=== PATIENT | male | born 1975 | race Caucasian/White ===

== ENCOUNTER 2018-03-28 10:09 | Emergency (ER) | payer MEDICAID, MEDICARE ==
[2018-03-28] MEDS ORDERED: Naproxen 500 MG TAB ONE (10:36)
[2018-03-28] MEDS ORDERED: diphenhydrAMINE 50 MG/ML VIAL ONE (10:36)
[2018-03-28] MEDS ORDERED: HYDROcodone/Acetaminophen 10/325 mg Tablet ONE (10:36)
[2018-03-28] MEDS ORDERED: Lorazepam 2 MG/ML VIAL ONE (11:14)
--- NOTE | 2018-03-28 11:28 | RAD ---
PA CHEST WITH TWO VIEWS LEFT RIBS: Date: 03-28-18 Provided Clinical History: Chest pain status post injury. Comparison: 08-10-14 FINDINGS: Cardiac and mediastinal silhouette is within normal limits. Lungs appear clear. There is no pleural f luid or pneumothorax apparent. Fractures of the lateral 4th, 5th, and 6th ribs are demonstrated with minimal displacement of the 6th rib fracture. Nondisplaced anterior 8th rib fracture is also noted. IMPRESSION: Left sided rib fractures without evidence for pleural fluid or pneumothorax. POS: [facility]
== END 2018-03-28 11:35 | disposition home or self-care (01) ==
LOC: MADERS 10:09
DX: S22.42XA Multiple fractures of ribs, left side, initial encounter for closed fracture (principal); F41.9 Anxiety disorder, unspecified; K21.9 Gastro-esophageal reflux disease without esophagitis; F31.9 Bipolar disorder, unspecified; F20.9 Schizophrenia, unspecified; F17.290 Nicotine dependence, other tobacco product, uncomplicated; W10.9XXA Fall (on) (from) unspecified stairs and steps, initial encounter; Y93.02 Activity, running
CPT/HCPCS: 96374; 96375; J1200; J2060

== ENCOUNTER 2018-03-30 09:22 | Emergency (ER) | payer MEDICARE ==
[~2018-03-30 09:22] MED LIST: Sodium Chloride 0.9% 1,000 ML BAG ONE
[2018-03-30 09:47] LABS: #Basophils 0.1 thou/uL (0.0-0.2); #Lymphocytes 1.9 thou/uL (1.20-3.40); #Neutrophils 9.9 thou/uL (1.40-6.50); %Basophils 0.7 % (0.0-1.0); %Lymphocytes 13.8 % (21.0-51.0); %Monocytes 14.1 % (0.0-10.0); %Neutrophils 71.4 % (42.0-75.0); Mean Corpuscular HGB CONC 35.1 g/dL (32.0-36.0); Mean Corpuscular Hemoglobin 33.7 pg (27.0-31.0); Mean Platelet Volume 7.2 fL (7.4-10.4); Platelet Count 215 thou/uL (130-400); RBC Distribution Width 11.8 % (11.5-14.5); Red Blood Cell (RBC) Count 4.44 mill/uL (4.70-6.10); White Blood Cell (WBC) Count 13.8 thou/uL (4.8-10.8)
[2018-03-30] MEDS ORDERED: Bacitracin Zinc 1 Packet ONE (09:52)
[2018-03-30] MEDS ORDERED: Ibuprofen 100 MG/5 ML UDCUP ONE (09:52)
[2018-03-30] MEDS ORDERED: Thiamine HCl 200 MG/2 ML VIAL ONE (09:52)
[2018-03-30] MEDS ORDERED: Ziprasidone 20 MG VIAL ONE (09:52)
[2018-03-30] MEDS ORDERED: Octreotide Acetate 100 MCG/ML VIAL ONE (09:55)
[2018-03-30] MEDS ORDERED: Sterile Water 10 ML ONE (09:55)
[2018-03-30 10:00] LABS: Acetaminophen Less than 6.0 mcg/mL (10.0-30.0); Alcohol Less than 10 mg/dL (Less than 10); Anion Gap 27 mmol/L (10-20); BUN (Urea Nitrogen) 41 mg/dL (8.9-20.6); Calc. Creatinine Clearance 0 mL/min (70-130); Calcium 9.1 mg/dL (7.8-10.44); Carbon Dioxide 14 mmol/L (22-29); Chloride 99 mmol/L (98-107); Estimated GFR-MDRD 12; Glucose 93 mg/dL (70-105); Potassium 5.2 mmol/L (3.5-5.1); Salicylate Less than 8.0 mg/dL (15.0-30.0); Sodium 135 mmol/L (136-145)
[2018-03-30 12:42] LABS: Bilirubin Small (Negative); Blood, Urine Large (Negative); Glucose, Urine (Dipstick) Negative (Negative); Leukocyte Negative (Negative); Nitrite Negative (Negative); Protein, Urine (Dipstick) 100 mg/dL (Neg-Trace); Specific Gravity, Urine 1.025 (1.005-1.030); Urobilinogen 0.2 mg/dL (0.2-1.0); pH, Urine 5.5 (5.0-9.0)
[2018-03-30 12:48] LABS: Clarity Cloudy (Clear)
[2018-03-30 12:49] LABS: Amphetamine Detected (NotDetected); Barbiturates Screen Not Detected (NotDetected); Benzodiazepine Screen Not Detected (NotDetected); Cocaine Metabolite Screen Not Detected (NotDetected); Medtox Control Line Valid? VALID (VALID); Methadone Not Detected (NotDetected); Methamphetamine Detected (NotDetected); Opiate Screen Not Detected (NotDetected); Oxycodone Screen Not Detected (NotDetected); Phencyclidine (PCP) Not Detected (NotDetected); THC/Cannabinoid Screen Not Detected (NotDetected); Tricyclic Screen Not Detected (NotDetected)
[2018-03-30 12:52] LABS: Bacteria/HPF Rare-Few HPF (None Seen); Crystals/HPF 2+ AMORPH URATES HPF (Negative); RBC/HPF 0-3 HPF (0-3); Squamous Epithelial 0-3 HPF (0-3); WBC/HPF None Seen HPF (0-3)
== END 2018-03-30 14:00 ==
LOC: MADERS 09:22
DX: F15.10 Other stimulant abuse, uncomplicated (principal); E86.0 Dehydration; K21.9 Gastro-esophageal reflux disease without esophagitis; F31.9 Bipolar disorder, unspecified; F20.9 Schizophrenia, unspecified; F17.210 Nicotine dependence, cigarettes, uncomplicated
CPT/HCPCS: 36415; 51701; 80048; 80306; 80307; 81003; 81015; 85025; 96361; 96372; 96374; A4216; J2354; J3411; J3486; J7050

== ENCOUNTER 2018-04-01 20:41 | Emergency (ER) | payer MEDICARE ==
[2018-04-01 21:11] LABS: #Basophils 0.1 thou/uL (0.0-0.2); #Eosinphils 0.1 thou/uL (0.0-0.7); #Lymphocytes 1.6 thou/uL (1.20-3.40); #Monocytes 1.1 thou/uL (0.11-0.59); #Neutrophils 6.2 thou/uL (1.40-6.50); %Basophils 0.9 % (0.0-1.0); %Eosinophils 0.7 % (0.0-10.0); %Lymphocytes 17.9 % (21.0-51.0); %Monocytes 11.7 % (0.0-10.0); %Neutrophils 68.8 % (42.0-75.0); Hemoglobin 12.9 g/dL (14.0-18.0); Mean Corpuscular HGB CONC 34.4 g/dL (32.0-36.0); Mean Corpuscular Hemoglobin 32.8 pg (27.0-31.0); Mean Corpuscular Volume 95.3 fl (80.0-94.0); Mean Platelet Volume 5.8 fL (7.4-10.4); Platelet Count 242 thou/uL (130-400); RBC Distribution Width 11.3 % (11.5-14.5); Red Blood Cell (RBC) Count 3.92 mill/uL (4.70-6.10)
[2018-04-01 21:24] LABS: Amphetamine Not Detected (NotDetected); Barbiturates Screen Not Detected (NotDetected); Benzodiazepine Screen Not Detected (NotDetected); Cocaine Metabolite Screen Not Detected (NotDetected); Medtox Control Line Valid? VALID (VALID); Methadone Not Detected (NotDetected); Methamphetamine Detected (NotDetected); Opiate Screen Not Detected (NotDetected); Oxycodone Screen Not Detected (NotDetected); Phencyclidine (PCP) Not Detected (NotDetected); THC/Cannabinoid Screen Not Detected (NotDetected); Tricyclic Screen Not Detected (NotDetected)
[2018-04-01 21:26] LABS: Anion Gap 17 mmol/L (10-20); BUN (Urea Nitrogen) 12 mg/dL (8.9-20.6); Calc. Creatinine Clearance 0 mL/min (70-130); Calcium 8.9 mg/dL (7.8-10.44); Carbon Dioxide 20 mmol/L (22-29); Chloride 103 mmol/L (98-107); Estimated GFR-MDRD 69; Glucose 133 mg/dL (70-105); Potassium 3.6 mmol/L (3.5-5.1); Sodium 136 mmol/L (136-145)
[2018-04-01] MEDS ORDERED: Lorazepam 1 MG TAB ONE (21:27)
[2018-04-01 21:29] LABS: Acetaminophen Less than 6.0 mcg/mL (10.0-30.0); Alcohol Less than 10 mg/dL (Less than 10); Salicylate Less than 8.0 mg/dL (15.0-30.0)
== END 2018-04-02 00:50 | disposition short-term general hospital (02) ==
LOC: MADERS 20:41
DX: R45.851 Suicidal ideations (principal); R44.0 Auditory hallucinations; F31.9 Bipolar disorder, unspecified; F20.9 Schizophrenia, unspecified; F17.210 Nicotine dependence, cigarettes, uncomplicated; K21.9 Gastro-esophageal reflux disease without esophagitis
CPT/HCPCS: 36415; 80048; 80306; 80307; 84443; 85025; 99285